=== PATIENT | female | born 1980 | race Caucasian/White ===

== ENCOUNTER → 2021-01-20 | Outpatient (CLI) | payer MEDICARE, OTHER ==
[2021-01-20 14:27] VITALS: BP 145/81; PULSE 75; RESP 19; TEMP 98.2
--- NOTE | 2021-01-20 15:39 | P.GSHP ---
History of Present Illness H&P Date: 01/20/21 Chief Complaint: ? infection bilateral breast Diana is a 40 year old white female seen in consultation for Dr. Whitney regarding bilateral nipple discharge. She had been having the discharge for years. This had not changed, however, she also noted a lump in her left breast. This has gone away. She still is having the discharge. It only happens if she squeezes her breasts. The discharge sometimes is green in color but she is never noted any blood. [place] [address]. This revealed the right breast did not have any suspicious masses or calcifications. In the left breast the patient had noted an area of palpable change radiographically no specific lesions were seen. On spot compression views there was an over area of nodularity somewhat near the area and an ultrasound was recommended. An ultrasound did not show any specific lesions of concern. Therefore an [place] [address]. No MRI evidence of malignancy, a abnormal enhancement, or mass was noted. On the ultrasound a simple appearing cyst was noted at 11:00. However radiologist reading the report noted that the nodule suspicion seen on the CC view of the mammogram was definitely located towards the medial aspect. Was difficult to say whether the cyst represented the palpable lump or not considering its appearance on Fredy synthesis in computer aided detection there was a question of 29% possibility of malignancy of the lesion towards the medial aspect. It was felt that the best course of action would be an MRI of the breast for further interrogation. Cultures were obtained of the nipple discharge. Cultures were done and 2 occasions the patient was treated with a course of Bactrim and a course of Cipro. She continues to have nipple discharge. The bacteria noted from the nipple discharge were many gram-negative, moderate acinetobacter lwoffi, Bacillus, and staph[place] [address] was 6.2. She has not had any fever or chills. She has not had any abscesses in her breast. She had bilateral nipple piercings approximately 20 years ago. She does not have piercings at this time. In 2012 she shot up oxy in her breast. Caffeine: 12 pack of pop/day pepsi nicotine: 1 1/2 PPD chocolate: occasional Family history: Negative for cancer Hormonal history: Menarche: 11 A1, age at first : 17, breast fed: yes menopuase: Patient has not had a period for 3 years and then approximately a week ago she had a heavy. She has not seen a advanced practice professional for several years control pills: IUD for 9 years; it is out now hormones: none Surgical History: 1. carpel tunnel bilateral Medical History: 1. chronic chest infection 2. swollen legs and infections 3. Fibromyalgia 4. 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; not used since 2013 - Constitutional Constitutional: Reports sweats - EENT Eyes: bilateral blurred vision, denies pain Ears: bilateral: decreased hearing, tinnitus Ears, nose, mouth and throat: Reports sore throat, Denies headache - Breasts Breasts: bilateral: as per HPI - Cardiovascular Cardiovascular: Reports chest pain, Reports shortness of breath - Respiratory Respiratory: Reports cough - Gastrointestinal Gastrointestinal: Reports constipation - Genitourinary (Female) Genitourinary: Reports stress incontinence, Denies dysuria, Denies hematuria - Menstruation Menstruation: Reports premenarcheal - Musculoskeletal Musculoskeletal: Reports myalgias - Integumentary Integumentary: Reports as per HPI - Neurological Neurological: Denies numbness, Denies weakness - Psychiatric Psychiatric: Denies anxiety, Denies depression - Endocrine Endocrine: Reports weight change, Denies fatigue - Hematologic/Lymphatic Comment: none - Allergic/Immunologic Allergic/Immunologic: Reports as per HPI Past Medical History History of Any Multi-Drug Resistant Organisms: None Reported Smoking Status: Current every day smoker Medications and Allergies Home Medications Medication Instructions Recorded Confirmed Type ALPRAZolam [Xanax] 0.5 mg PO DAILY PRN 01/20/21 01/20/21 History Albuterol Inhaler [Ventolin Hfa 1 puff INHALATION DAILY PRN 01/20/21 01/20/21 History Inhaler] Budesonide-Formot 160-4.5 Mcg 2 puff INHALATION BID PRN 01/20/21 01/20/21 History [Symbicort 160-4.5 Mcg Inhaler] Buprenorphine HCl/Naloxone HCl 1 each SL DAILY 01/20/21 01/20/21 History [Suboxone 8 mg-2 mg Sl Film] Desvenlafaxine Succinate [Pristiq] 50 mg PO DAILY 01/20/21 01/20/21 History Ergocalciferol [Vitamin D2 (1250 1,250 mcg PO WEEKLY 01/20/21 01/20/21 History Mcg = 48594 Iu)] Furosemide [Lasix] 10 mg PO DAILY 01/20/21 01/20/21 History Ibuprofen 800 mg PO Q8H PRN 01/20/21 01/20/21 History L.acidoph,Paracasei, B.lactis 1 each PO DAILY 01/20/21 01/20/21 History [Probiotic] Potassium Chloride 40 meq PO DAILY 01/20/21 01/20/21 History SUMAtriptan succinate [Imitrex] 50 mg PO ONCE 01/20/21 01/20/21 History ondansetron HCL [Zofran] 8 mg PO Q12HR 01/20/21 01/20/21 History Allergies Allergy/AdvReac Type Severity Reaction Status Date / Time No Known Allergies Allergy Unverified 01/20/21 14:23 Surgical - Exam Vital Signs Temp Pulse Resp BP Pulse Ox 98.2 F 75 19 145/81 99 01/20/21 14:23 01/20/21 14:23 01/20/21 14:23 01/20/21 14:23 01/20/21 14:23 BMI 44.6 - General no distress - Eyes normal ocular movement - ENT normal pinna, no hearing loss - Neck no masses, trachea midline - Respiratory normal respiratory effort, clear to auscultation - Cardiovascular Rhythm: regular Heart Sounds: normal: S1, S2 - Integumentary swelling of legs bilateral with some erythemia - Musculoskeletal normal gait - Psychiatric oriented to time, oriented to person, oriented to place, speech is normal, memory intact Breast Exam: BRA: 50DDD Inspection: right breast larger than left/ bilateral grade 3 ptosis Fungal infection under both breasts Palpation: Right breast: Multi-positional exam fibrocystic changes, and no dominant masses or nodules of concern, fibrocystic discharge which is guaiac negative Right axilla: No adenopathy of concern Left breast: Multi-positional exam fibrocystic changes, nipple discharge guaiac negative, no dominant masses or nodules of concern Left axilla: No adenopathy of concern Folliculitis inferior aspect of both breast Results Results of the mammogram/ultrasound/and MRI reviewed Assessment and Plan Assessment: Impression: 1. chronic chest infection 2. swollen legs and infections 3. Fibromyalgia 4. Chronic fatigue syndrome 5. Bilateral nipple discharge 6. Cultures in the past may have been skin bike for rather than true representation of infection and the breast 7. Folliculitis 8. Fungal infection underneath the breast 9. Results of mammogram/ultrasound/an MRI reviewed up and which would warrant interventional biopsy at this time 10. 12 pack of pop per day/1-1/2 packs of cigarettes per day Plan: 1. Have encouraged patient to stop smoking and decrease caffeine intake 2. Recent change in uterine bleeding recommend HYDROPULPER consultation 3. Bilateral mammogram and physician exam regarding her breast in 1 year 4. Nothing at this time which would warrant surgical biopsy of the breast, no active infection of the breast is identified 5. Nystatin for the fungal infection under the breast 6. Infectious disease consultation is already being sought and she will discuss the culture results with infectious disease as well as the folliculitis in her lower aspect of her breast in the meantime Neosporin [id number] could be used Cc: Dr. Whitney
== END | disposition home or self-care (01) ==
LOC: WWCWWP 13:51
PROVIDERS: ATTEND Surgery
DX: Z53.9 Procedure and treatment not carried out, unspecified reason (principal)